=== PATIENT | female | born 1995 | race Caucasian/White ===

== ENCOUNTER → 2019-06-14 08:43 | Outpatient (BNVA) | payer SELFPAY | PROVIDERS: Family Provider Family Medicine; Visit Provider Nurse Practitioner Women's Health | DX: Z01.89 Encounter for other specified special examinations (principal) | CPT/HCPCS: 84315 ==

== ENCOUNTER → 2019-06-20 10:49 | Outpatient (BNVA) | payer MEDICAID, SELFPAY | PROVIDERS: Family Provider Family Medicine; Referring Provider Obstetrics & Gynecology; Visit Provider Obstetrics & Gynecology | DX: O09.291 Supervision of pregnancy with other poor reproductive or obstetric history, first trimester (principal); Z3A.10 10 weeks gestation of pregnancy | CPT/HCPCS: 76801 ==

== ENCOUNTER → 2019-06-28 14:05 | Outpatient (BNVA) | payer MEDICAID, SELFPAY | PROVIDERS: Family Provider Family Medicine; Visit Provider Obstetrics & Gynecology | DX: Z34.81 Encounter for supervision of other normal pregnancy, first trimester (principal) | CPT/HCPCS: 80307; 84315; 85027; 86592; 86762; 86803; 86850; 86900; 87086; 87340; 87806 ==

== ENCOUNTER → 2019-07-09 07:54 | Outpatient (BNVA) | payer MEDICAID, SELFPAY | PROVIDERS: Family Provider Family Medicine; Visit Provider Obstetrics & Gynecology | DX: Z34.81 Encounter for supervision of other normal pregnancy, first trimester (principal); O09.299 Supervision of pregnancy with other poor reproductive or obstetric history, unspecified trimester | CPT/HCPCS: 84315; 87491; 87591 ==

== ENCOUNTER → 2019-08-02 08:08 | Outpatient (BNVA) | payer MEDICAID, SELFPAY | PROVIDERS: Family Provider Family Medicine; Visit Provider Nurse Practitioner Women's Health | DX: O09.299 Supervision of pregnancy with other poor reproductive or obstetric history, unspecified trimester (principal); R31.9 Hematuria, unspecified; O99.331 Smoking (tobacco) complicating pregnancy, first trimester | CPT/HCPCS: 80053; 81000 ==

== ENCOUNTER → 2019-08-30 09:41 | Outpatient (BNVA) | payer MEDICAID, SELFPAY | PROVIDERS: Family Provider Family Medicine; Visit Provider Obstetrics & Gynecology | DX: Z36.89 Encounter for other specified antenatal screening (principal) | CPT/HCPCS: 76805 ==

== ENCOUNTER → 2019-09-03 09:09 | Outpatient (BNVA) | payer MEDICAID, SELFPAY | PROVIDERS: Family Provider Family Medicine; Visit Provider Obstetrics & Gynecology | DX: Z34.80 Encounter for supervision of other normal pregnancy, unspecified trimester (principal) | CPT/HCPCS: 81000 ==

== ENCOUNTER → 2019-09-24 10:08 | Outpatient (BNVA) | payer MEDICAID, SELFPAY | PROVIDERS: Family Provider Family Medicine; Visit Provider Obstetrics & Gynecology | DX: Z34.82 Encounter for supervision of other normal pregnancy, second trimester (principal) | CPT/HCPCS: 81000; 82950 ==

== ENCOUNTER → 2019-10-25 08:48 | Outpatient (BNVA) | payer MEDICAID, SELFPAY | PROVIDERS: Family Provider Family Medicine; Visit Provider Nurse Practitioner Women's Health | DX: Z34.90 Encounter for supervision of normal pregnancy, unspecified, unspecified trimester (principal); Z34.82 Encounter for supervision of other normal pregnancy, second trimester; Z34.83 Encounter for supervision of other normal pregnancy, third trimester | CPT/HCPCS: 81000; 85027 ==

== ENCOUNTER → 2019-11-08 14:19 | Outpatient (BNVA) | payer MEDICAID, SELFPAY | PROVIDERS: PCP Obstetrics & Gynecology; Visit Provider Obstetrics & Gynecology | DX: O99.013 Anemia complicating pregnancy, third trimester (principal); Z3A.00 Weeks of gestation of pregnancy not specified | CPT/HCPCS: 81000 ==

== ENCOUNTER → 2019-11-12 15:32 | Outpatient (BNVA) | payer MEDICAID, SELFPAY | PROVIDERS: PCP Obstetrics & Gynecology; Referring Provider Obstetrics & Gynecology; Visit Provider Obstetrics & Gynecology | DX: Z34.93 Encounter for supervision of normal pregnancy, unspecified, third trimester (principal); Z3A.33 33 weeks gestation of pregnancy | CPT/HCPCS: 76816 ==

== ENCOUNTER → 2019-11-22 15:07 | Outpatient (BNVA) | payer MEDICAID, SELFPAY | PROVIDERS: PCP Obstetrics & Gynecology; Visit Provider Obstetrics & Gynecology | DX: O99.013 Anemia complicating pregnancy, third trimester (principal); O99.331 Smoking (tobacco) complicating pregnancy, first trimester; O09.299 Supervision of pregnancy with other poor reproductive or obstetric history, unspecified trimester | CPT/HCPCS: 76816; 76819; 81000 ==

== ENCOUNTER → 2019-11-29 13:40 | Outpatient (BNVA) | payer MEDICAID, SELFPAY | PROVIDERS: PCP Obstetrics & Gynecology; Visit Provider Obstetrics & Gynecology | DX: O99.013 Anemia complicating pregnancy, third trimester (principal); O99.331 Smoking (tobacco) complicating pregnancy, first trimester; Z3A.00 Weeks of gestation of pregnancy not specified | CPT/HCPCS: 76816; 76819 ==

== ENCOUNTER → 2019-12-06 13:31 | Outpatient (BNVA) | payer MEDICAID, SELFPAY | PROVIDERS: PCP Obstetrics & Gynecology; Visit Provider Obstetrics & Gynecology | DX: O09.299 Supervision of pregnancy with other poor reproductive or obstetric history, unspecified trimester (principal); Z3A.00 Weeks of gestation of pregnancy not specified | CPT/HCPCS: 76816; 76819; 81000 ==

== ENCOUNTER → 2019-12-13 13:02 | Outpatient (BNVA) | payer MEDICAID, SELFPAY | PROVIDERS: PCP Obstetrics & Gynecology; Visit Provider Obstetrics & Gynecology | DX: O09.299 Supervision of pregnancy with other poor reproductive or obstetric history, unspecified trimester (principal) | CPT/HCPCS: 76816; 76819 ==

== ENCOUNTER → 2019-12-20 14:00 | Outpatient (BNVA) | payer MEDICAID, SELFPAY | PROVIDERS: PCP Obstetrics & Gynecology; Visit Provider Obstetrics & Gynecology | DX: O09.299 Supervision of pregnancy with other poor reproductive or obstetric history, unspecified trimester (principal) | CPT/HCPCS: 76816; 76819; 81000; 87081 ==

== ENCOUNTER → 2019-12-27 13:49 | Outpatient (BNVA) | payer MEDICAID, SELFPAY | PROVIDERS: PCP Obstetrics & Gynecology; Visit Provider Obstetrics & Gynecology | DX: O09.299 Supervision of pregnancy with other poor reproductive or obstetric history, unspecified trimester (principal); O99.013 Anemia complicating pregnancy, third trimester; O99.333 Smoking (tobacco) complicating pregnancy, third trimester; Z3A.37 37 weeks gestation of pregnancy | CPT/HCPCS: 76816; 76819; 81000 ==

== ENCOUNTER → 2020-01-03 13:40 | Outpatient (BNVA) | payer MEDICAID, SELFPAY | PROVIDERS: PCP Obstetrics & Gynecology; Visit Provider Obstetrics & Gynecology | DX: O09.299 Supervision of pregnancy with other poor reproductive or obstetric history, unspecified trimester (principal) | CPT/HCPCS: 76816; 76819; 81000 ==

== ENCOUNTER → 2020-01-10 13:03 | Outpatient (BNVA) | payer MEDICAID, SELFPAY | PROVIDERS: PCP Obstetrics & Gynecology; Visit Provider Obstetrics & Gynecology | DX: O09.299 Supervision of pregnancy with other poor reproductive or obstetric history, unspecified trimester (principal) | CPT/HCPCS: 76816; 76819; 81000 ==

== ENCOUNTER → 2020-01-14 10:04 | Outpatient (BNVA) | payer MEDICAID, SELFPAY | PROVIDERS: PCP Obstetrics & Gynecology; Visit Provider Obstetrics & Gynecology | DX: Z34.83 Encounter for supervision of other normal pregnancy, third trimester (principal); O48.0 Post-term pregnancy | CPT/HCPCS: 76816; 76819; 81000 ==

== ENCOUNTER 2020-01-16 16:58 | Inpatient (IN) | payer MEDICAID, SELFPAY ==
[2020-01-16 17:09] VITALS: BP 112/75; PULSE 105
[2020-01-16 18:22] LABS: Basophils % 0.2 %; Eosinophils % 0.1 %; Hematocrit 32.8 % (37.0-47.0); Hemoglobin 10.5 g/dL (11.5-15.3); Lymphocytes # 2.8 10^3/uL (0.8-4.8); Lymphocytes % 22.6 %; Mean Corpuscular Hemoglobin 27.6 pg (28.0-34.0); Mean Corpuscular Volume 86.1 fL (81-99); Mean Platelet Volume 10.4 fL (7.4-10.4); Monocytes # 0.9 10^3/uL (0.2-0.9); Neutrophils # 8.51 10^3/uL (1.8-7.7); Neutrophils % 69.4 %; Nucleated Red Blood Cells % 0 %; Platelet Count 269 10^3/cmm (130-400); Red Blood Count 3.81 10^6/uL (4.1-5.3); Red Cell Distribution Width 13.2 % (12.1-15.1); White Blood Count 12.2 10^3/uL (4.0-10.0)
[2020-01-16] MEDS: miSOPROStol 100 mcg tablet 25 MCG VAGINAL ×2 (18:25→22:57)
[2020-01-16 18:49] VITALS: BMI 28.5
[2020-01-16 19:09] VITALS: BP 115/74; PULSE 82
[2020-01-16 20:16] VITALS: BP 119/76; PULSE 82
[2020-01-17] VITALS (106 sets, daily range): BP systolic 0–146; BP diastolic 0–93; PULSE 66–118; RESP 15–18; TEMP 36.6–37.2; O2SAT 90–99
[2020-01-17] MEDS: morphine 4 mg/mL SDV 1 mL 8 MG IM (00:08)
[2020-01-17] MEDS: promethazine 25 mg/mL SDV 1 mL IM (00:09)
[2020-01-17] MEDS: dextrose 5%-lactated ringers 1,000 ML 125 ML IV ×2 (08:20→23:00)
[2020-01-17] MEDS: oxytocin 30 UNIT/500 ML BAG IV (10:49)
[2020-01-17] MEDS: fentaNYL 50 mcg/mL INJ 2mL IV ×2 (14:57→16:02)
[2020-01-17] MEDS: acetaminophen 325 mg Tablet 650 MG PO (15:05)
[2020-01-17] MEDS: lactated ringers 1,000 ML 999 ML IV ×2 (16:26→17:26)
--- NOTE | 2020-01-17 17:23 | ANES.PAUD2 ---
Pre-Anesthetic Update Pre-Anesthetic Assessment: Date of Surgery/Procedure: 01/17/20 Preop Diagnosis: labor pains Proposed Procedure: epidural Any changes to Pre-Anesthetic Assessment?: No Labs Last 48hrs: Laboratory Results - last 48 hr 01/16/20 17:55 WBC 12.2 H RBC 3.81 L Hgb 10.5 L Hct 32.8 L MCV 86.1 MCH 27.6 L MCHC 32.0 RDW 13.2 Plt Count 269 MPV 10.4 Neut % (Auto) 69.4 Lymph % (Auto) 22.6 [place] % (Auto) 7.0 Eos % (Auto) 0.1 Baso % (Auto) 0.2 Neut # (Auto) 8.51 H Lymph # (Auto) 2.8 [place] # (Auto) 0.9 Eos # (Auto) 0.0 Baso # (Auto) 0.0 Nucleated RBC % (a uto) 0 Nucleated RBCs # 0.0 Vitals: Temperature 97.8 F 01/17/20 17:01 Temperature Source Oral 01/17/20 17:01 Pulse Rate 88 01/17/20 17:03 Pulse Rhythm 01/16/20 19:56 Pulse Strength 3+ Normal 01/16/20 20:00 Respiratory Rate 18 01/17/20 17:01 Respiratory Effort Labored 01/17/20 16:02 Respiratory Depth Normal 01/17/20 16:02 Respiratory Patter n 01/17/20 16:02 Blood Pressure 131/85 01/17/20 17:03 Blood Pressure Dee n 104 01/17/20 17:03 Oxygen Delivery Me thod 01/16/20 19:56 Exam: Pre-Anes Outpt Exam: alert, oriented x 3, clear to auscultation bilaterally and regular rate & rhythm Cardiac Studies: No Data to Display
--- NOTE | 2020-01-17 18:06 | ANES.PROC ---
Anesthesia Procedures Procedure/Date: 01/17/20 epidural Procedure Narrative: epidural complete, bolus given, multiple stick noted due to curvature of the spine, epidural pump initiated with LEAD FIRE PROTECTION ENGINEER education given, vitals taken during procedure using OBIX system and satisfactory throughout, patient admits to decrease pain, report of procedure to OB RN Epidural: Time Out Performed: Yes Consents Signed: Procedure Consent Consent: requested by attending/covering physician, from patient, risks and benefits reviewed and patient agrees to proceed Lumbar Level: L3-L4 Epidural position: sitting Epidural procedure: sterile prep of area, 1% lidocaine to numb the area (3 mL), 18 g needle, negative for paresthesia passed, neg for paresthesia, test dose given, 1.5% xylocaine 1:200k epi (5 mL), 0.2% Ropivacaine bolus ml (5 mL), placed PCEA, no systemic response, sterile dressing applied, L.U.D. no apparent complications and 0.2% Ropiavacaine @ mls/hr (13 mL/hr)
--- NOTE | 2020-01-17 22:23 | PC.NURSE ---
Dr. Parker at bedside, strip reviewed and MD orders to wait 30 minutes and if strip category 1 continue to titrate pitocin up. SVE was also given to MD at this time.
[2020-01-18] VITALS (142 sets, daily range): BP systolic 0–150; BP diastolic 0–97; PULSE 51–128; RESP 16–18; TEMP 36.9–37.4; O2SAT 91–100
--- NOTE | 2020-01-18 02:09 | PC.NURSE ---
Dr. Parker at nurses station, updated on SVE, edgar beltre, orders to continue with current POC and he will be in workers compensation attorney room if needed.
--- NOTE | 2020-01-18 02:45 | PC.NURSE ---
Dr. Parker at bedside discussing POC with patient
--- NOTE | 2020-01-18 03:41 | PC.NURSE ---
Dr. Parker at bedside, strip reviewed, nursing interventions that were performed told to , performs SVE.
--- NOTE | 2020-01-18 03:56 | PM.PN ---
Subjective Subjective: Interval history: refers no pain Vitals/I&O/Wt Last Vital Signs Temp 98.7 F 01/17/20 22:27 Pulse 75 01/18/20 03:43 Resp 16 01/17/20 22:27 BP 108/70 01/18/20 03:43 Pulse Ox 100 01/18/20 03:53 01/17/20 01/17/20 01/18/20 14:59 22:59 06:59 Intake Total 390.534 / 018.728 8268.499 / 1765.033 116.917 / 1881.950 Balance 390.534 / 580.671 1769.499 / 1765.033 116.917 / 1881.950 Weight last 48 hrs Weight 87.543 kg Physical Exam Narrative: EXAM NARRATIVE: GA: Alert and oriented ?3. Lungs: Clear to auscultation bilaterally. Heart: Regular rhythm and rate. Abdomen: Gravid, fundal height correlates dates, nontender. CHEMICAL LABORATORY ASSISTANT: SVE; dilation: 9 cm, effacement: 100 %, station: 0, presentation: Vertex, membranes: AROM clear. Extremities: no edema, no cyanosis, no calves pain. heart tracing: Basal rate: 130 bpm, Variability: Moderate, Accelerations: Present, Decelerations: Variable, Contractions: Every 4-5 minutes. Urinary Catheter Management^: Montelongo: Cath Placed During This Visit: yes Reason for Continuing Indwelling Catheter: Required Immobilization for Trauma or Surgery or Anesthesia Urinary Catheter Date of Insertion: 01/17/20 Urinary Catheter Time of Insertion: 18:34 Data : 01/16/20 17:55 A&P Assessment and plan (1) Term : Status: Acute (2) Active labor at term: Patient was noted to have variable decelerations and intrauterine resuscitation was initiated, patient have to be repositioned several times. heart tracing category 2, Continue observation. Anticipate vaginal delivery. Status: Acute Attestations Medical Necessity Statement*: My professional opinion per admitting diagnosis Coding Level of Care Code Acute Manager Spa for Chg Fwd Diagnoses Term Z34.90 Active labor at term
--- NOTE | 2020-01-18 04:50 | PC.NURSE ---
O2 removed at this time.
[2020-01-18] MEDS: dextrose 5%-lactated ringers 1,000 ML 125 ML IV (10:00)
--- NOTE | 2020-01-18 16:20 | PM.DELIVERY ---
Delivery Note: Date of delivery: January 18, 2020 Pre-delivery diagnoses: Term Post-delivery diagnoses: Term delivered Procedure: Vacuum-assisted vaginal delivery Op report anesthesia: Epidural Delivering Physician: Dennis Parker M.D. Estimated blood loss (mL): 8,800 Delivery: This is a 24-year-old G1 woman who was weeks days when she was admitted for induction of labor. When she was admitted, her cervix was 2.5 cm dilated with 60% effacement. The baby had a -2 station. She had no regular contractions. heart tones were 120s and reactive. She was started on Pitocin for labor induction and labored slowly. She had Artificial rupture of membranes with a clear fluid. As labor progressed and descent of head, there were some variable decelerations. The baby was at a +1 station when the patient began pushing pushed for 2 1/2 hours. I had her push to get the baby to a +2 station. During pushing, the heart tones were in the 80s and slow recover in between contractions. Because of this, I recommended a vacuum delivery for the baby. The patient agreed. The baby's head was confirmed to be in the occipitus posterior presentation. The perineum was injected with 1% lidocaine. The bladder was drained. The vacuum was placed and the correct placement in front of the posterior fontanelle was confirmed digitally. With the patient's next contraction, the vacuum was inflated and a gentle downward pressure was used to assist with brining the baby's head to a +3 station. The contraction ended. Again with next contraction the vacuum was inflated and a gentle downward pressure was used to assist with brining the baby's head to a +3 station. The vacuum was released and the heart tones remained in the, at this time, 90s to 100s. With the patient's next contraction, the vacuum was reapplied a modified medial episiotomy hockey stick was performed and the baby's head was delivered to a +4 station. A modified Ritgen maneuver was used to stabilize the head. The vacuum was deflated and removed. The baby's head then delivered atraumatically. There was no nuchal cord. The baby's anterior shoulder delivered after a less than 30 second delay. No additional maneuvers were required to deliver the anterior shoulder. The posterior shoulder and remainder of the body delivered easily. The baby's mouth and nose were bulb suctioned. The cord was clamped x2 and cut. The infant was passed to the mother's abdomen where Nursing personnel were in attendance. She delivered a male infant at 1545, Apgars 8 and 9, with a weight of 3210 g. The placenta delivered spontaneously, was intact and had a three-vessel cord. A vaginal inspection revealed a second-degree laceration. The second-degree laceration was also repaired with #2 & 3-0 Vicryl sutures in the typical fashion. The patient tolerated the procedure very well. She remains in the LDR with the baby. The baby is vigorous, crying and moving all extremities. He will go to the new born nursery when ready. The total time for repair of the laceration was 25 minutes. Post-Delivery Status: My vacuum-assisted delivery third-degree laceration A&P Assessment and plan (1) Term delivered: Status: Acute Coding Level of Care Code Acute Motion Picture Set Worker for Chg Fwd Diagnoses Term delivered O80
[2020-01-18] MEDS: benzocaine-menthol 78 gm Canister 1 SPRAY TOPICAL (17:59)
[2020-01-18] MEDS: docusate sodium 100 mg Capsule PO (17:59)
[2020-01-19 01:40] VITALS: BP 113/75; PULSE 88; RESP 17
[2020-01-19 05:00] VITALS: BP 106/70; PULSE 87; RESP 18
[2020-01-19 05:19] LABS: Hematocrit 27.2 % (37.0-47.0); Hemoglobin 8.6 g/dL (11.5-15.3); Mean Corpuscular HGB Conc 31.6 g/dL (30.0-36.0); Mean Corpuscular Hemoglobin 27.3 pg (28.0-34.0); Mean Corpuscular Volume 86.3 fL (81-99); Mean Platelet Volume 10.3 fL (7.4-10.4); Platelet Count 229 10^3/cmm (130-400); Red Blood Count 3.15 10^6/uL (4.1-5.3); Red Cell Distribution Width 13.6 % (12.1-15.1); White Blood Count 23.6 10^3/uL (4.0-10.0)
[2020-01-19] MEDS: prenatal vitamin Capsule 1 CAP PO (08:39)
--- NOTE | 2020-01-19 10:07 | P.DS_ITS ---
Discharge Providers ELECTRONIC WARFARE OPERATOR Date of Admission: 01/16/20 16:58 Date of Discharge: 01/19/20 Attending Provider at Admission: Dennis Parker MD Attending Provider at Discharge: Dennis Parker MD Primary Care Provider: Dennis Parker MD Diagnoses at Discharge Discharge Diagnosis (1) Term delivered: Status: Acute Reason for Visit Reason for Visit: Induction Hospital Course Hospital Course: 24-year-old female at term, Admitted for elective induction. She received misoprostol for cervical ripening then oxytocin. She had slow progress of labor And had a Vacuum-assisted vaginal delivery, of term male in OP presentation, Overt modified mediolateral episiotomy, with extend the second-degree laceration. Apgars 8 and 9. observation uneventful. She is afebrile hemodynamically stable. Tolerating diet well. Ambulating without difficulty. Information Peripartum Data: Delivery Method: Vaginal Physical Exam Narrative: EXAM NARRATIVE: GA; alert and oriented x 3 HEENT: normal Breasts: engorged Nipples - skin intact Lungs; clear to auscultation Heart: regular rhythm, no murmurs. Abd: Appropriately tender. BS+. Uterine fundus below umbilicus. No Fundal Tenderness. Perineum: normal lochia. Extremities: no edema, no cyanosis, no tenderness. Urinary Catheter Management^: Montelongo: Cath Placed During This Visit: yes Reason for Continuing Indwelling Catheter: Acute Urinary Retention or Obstruction Urinary Catheter Date of Insertion: 01/17/20 Urinary Catheter Time of Insertion: 18:34 Discharge Data Data Completed and Pending: Labs from last 24 hours 01/19/20 04:57 WBC 23.6 H RBC 3.15 L Hgb 8.6 L Hct 27.2 L MCV 86.3 MCH 27.3 L MCHC 31.6 RDW 13.6 Plt Count 229 MPV 10.3 Vitals: Last Vital Signs Temp 98.6 F 01/18/20 23:45 Pulse 87 01/19/20 05:00 Resp 18 01/19/20 05:00 BP 106/70 01/19/20 05:00 Pulse Ox 96 01/18/20 23:45 Discharge Plan Discharge Patient Disposition: Home Condition: Stable Prescriptions: New docusate sodium 100 mg Capsule 100 mg PO BID Qty: 60 RF: 0 acetaminophen 325 mg capsule 325 mg PO Q4H PRN (Reason: fever or pain) Qty: 60 RF: 0 ibuprofen 800 mg tablet 800 mg PO TID PRN (Reason: pain) Qty: 60 RF: 0 Continued Gummies 400 mcg-35 mg- 25 mg-5 mg tablet,chewable 1 tab PO DAILY RF: 0 folic acid 1 mg tablet 1 mg PO DAILY RF: 0 ferrous sulfate 325 mg (65 mg iron) tablet 325 mg PO BID Qty: 60 RF: 4 Discharge Orders: Discharge Order (Routine); Ordered 01/19/20 Ordered By: Dennis Parker Referrals: Dennis Parker MD [Primary Care Provider] - 6 Weeks Discharge Attestations ELECTRONIC WARFARE OPERATOR Time Spent in Discharge Care*: greater than 30 min Specific Discharge Activities: Specific discharge activities: educating patient and educating and/or supporting family/caregiver Coding Level of Care Code Acute Airline Flight Attendant for Chg Fwd Diagnoses Term delivered O80
[2020-01-19 10:32] VITALS: BP 102/66; PULSE 92; RESP 16; TEMP 36.6; O2SAT 96
[2020-01-19 18:24] VITALS: BP 102/66; PULSE 92; RESP 16; TEMP 36.6; O2SAT 96
== END 2020-01-19 17:55 | disposition home or self-care (01) | DRG 768 ==
PROVIDERS: Admitting Provider Obstetrics & Gynecology; PCP Obstetrics & Gynecology; Visit Provider Obstetrics & Gynecology
DX: O76 Abnormality in fetal heart rate and rhythm complicating labor and delivery (principal); Z37.0 Single live birth; O70.20 Third degree perineal laceration during delivery, unspecified; Z3A.40 40 weeks gestation of pregnancy
CPT/HCPCS: 12345; 36415; 51702; 59025; 59409; 85025; 85027; 96372; 96374; 96375; 99211; G0379; J2270; J2550; J2795; J3010